=== PATIENT | male | born 1935 | race Caucasian/White ===

== ENCOUNTER 2017-10-27 12:25 | Emergency (ER) | payer MEDICARE, MEDICAID ==
[~2017-10-27] VITALS: Ht 180.3 cm; Wt 54.0 kg
[2017-10-27 13:00] VITALS: BP 123/74
[2017-10-27 15:55] LABS: CLARITY,URINE TURBID (Clear); COLOR,URINE YELLOW (Yellow); GLUCOSE, URINE NEGATIVE (Neg); KETONES,URINE NEGATIVE (Neg); LEUKOCYTE ESTERASE ,URINE LARGE (Neg); NITRITES, URINE NEGATIVE (Neg); OCCULT BLOOD,URINE MODERATE (Neg); PH,URINE >=9.0 (4.8-8.0); PROTEIN,URINE >=300 mg/dl (Neg); UROBILINOGEN,URINE 0.2 E.U/dL (0.2-1.0)
[2017-10-27] MEDS ORDERED: DOXY100C43 PO (15:55)
[2017-10-27 16:07] LABS: UA COLLECTION TYPE FOLEY CATH
[2017-10-27 16:08] LABS: BACTERIA,URINE NONE SEEN /HPF (Neg); MUCUS STRANDS NONE SEEN /LPF (Neg); RBC,URINE 20-50 /HPF (0-2); SQUAMOUS EPITHELIAL CELL,UR NONE SEEN /LPF (FEW); TRIPLE PHOSPHATE CRYST 3+ /HPF (NEGATIVE)
== END 2017-10-27 16:37 | disposition home or self-care (01) ==
LOC: ER 12:27
DX: T83.098A Other mechanical complication of other urinary catheter, initial encounter (principal); N39.0 Urinary tract infection, site not specified; Z87.891 Personal history of nicotine dependence; Z60.2 Problems related to living alone; Z88.5 Allergy status to narcotic agent
CPT/HCPCS: 51700; 81001; 87077; 87088; 87186; 99284

== ENCOUNTER 2017-11-06 20:32 | Emergency (ER) | payer MEDICARE, MEDICAID ==
[~2017-11-06] VITALS: Ht 180.3 cm; Wt 54.9 kg
[~2017-11-06 20:32] MED LIST: DOXY100C43 PO
[2017-11-06 21:34] VITALS: BP 135/74
== END 2017-11-07 00:45 | disposition home or self-care (01) ==
LOC: ER 20:33
DX: T83.091A Other mechanical complication of indwelling urethral catheter, initial encounter (principal); Z88.5 Allergy status to narcotic agent; Z79.899 Other long term (current) drug therapy
CPT/HCPCS: 51702; 99284

== ENCOUNTER 2017-11-15 11:51 | Emergency (ER) | payer MEDICARE, MEDICAID ==
[~2017-11-15] VITALS: Ht 167.6 cm; Wt 54.0 kg
[2017-11-15 12:53] LABS: CLARITY,URINE CLOUDY (Clear); COLOR,URINE AMBER (Yellow); GLUCOSE, URINE NEGATIVE (Neg); KETONES,URINE NEGATIVE (Neg); LEUKOCYTE ESTERASE ,URINE LARGE (Neg); OCCULT BLOOD,URINE LARGE (Neg); PH,URINE >=9.0 (4.8-8.0); PROTEIN,URINE 100 mg/dl (Neg); UROBILINOGEN,URINE 0.2 E.U/dL (0.2-1.0)
[2017-11-15 12:59] LABS: UA COLLECTION TYPE FOLEY CATH
[2017-11-15 13:02] LABS: NITRITES, URINE NEGATIVE (Neg)
[2017-11-15 13:03] LABS: BACTERIA,URINE NONE SEEN /HPF (Neg); MUCUS STRANDS FEW /LPF (Neg); RBC,URINE 50-100 /HPF (0-2); SQUAMOUS EPITHELIAL CELL,UR NONE SEEN /LPF (FEW)
[2017-11-15 13:04] LABS: AMORPHOUS PHOSPHATES 3+; TRIPLE PHOSPHATE CRYST 3+ /HPF (NEGATIVE)
[2017-11-15] MEDS ORDERED: SULF1TAB49 PO (13:57)
[2017-11-15 14:09] VITALS: BP 106/66
[2017-11-15] MEDS ORDERED: PHEN-716 PO (20:47)
== END 2017-11-15 14:13 | disposition home or self-care (01) ==
LOC: ER 11:51
DX: R33.9 Retention of urine, unspecified (principal); Z88.5 Allergy status to narcotic agent
CPT/HCPCS: 51700; 81001; 99285